=== PATIENT | female | born 1950 | race Caucasian/White ===

== ENCOUNTER 2017-05-02 10:59 | Inpatient (IN) ==
[2017-05-02 12:04] LABS: Basophils # 0.1 10*3/uL (0.0-0.2); Basophils % 0.9 % (0.0-0.8); Eosinophils # 0.3 10*3/uL (0.0-0.87); Eosinophils % 2.7 % (0.00-10.9); Hematocrit 40.9 VOL% (35.7-47.0); Hemoglobin 13.2 GM/DL (12.0-16.0); Immature Granulocytes % 0.2 %; Immature Granulocytes Absolute 0.02 #; Lymphocytes % 27.9 % (21.3-54.2); Mean Corpuscular HGB Conc 32.3 GM/DL (32-36); Mean Corpuscular Hemoglobin 32 PG (27-34); Mean Corpuscular Volume 100.5 FL (87-102); Mean Platelet Volume 9.2 FL (9.6-12.0); Monocytes # 0.9 10*3/uL (0.11-0.8); Monocytes % 8.1 % (1.7-12.7); Neutrophils # 6.4 10*3/uL (1.4-7.4); Neutrophils % 60.2 % (38.7-73.9); Platelet Count 337 T/CUMM (130-400); Red Blood Count 4.07 MC/CUMM (3.8-5.5); Red Cell Distribution Width 13.9 % (9.3-17.3); White Blood Count 10.7 T/CUMM (4-12)
[2017-05-02 12:15] LABS: PT Patient Result 10.7 SECS; Partial Thromboplastin Time 27.1 SECS (0-40)
[2017-05-02 12:38] LABS: Albumin 3.3 G/DL (3.4-5.0); Bilirubin,Total 0.5 MG/DL (0.2-1.0); Calcium 8.9 MG/DL (8.5-10.1); Potassium 4.5 MMOL/L (3.5-5.1); Total Protein 7.2 G/DL (6.4-8.3); Troponin I Only 0.778 NG/ML (0.00-0.045)
[2017-05-02] MEDS ORDERED: diphenhydrAMINE 50 MG/1 ML VIAL IV STA (12:50)
[2017-05-02] MEDS ORDERED: methylPREDNISolone SOD SUC 125 MG/2 ML VIAL IV STA (12:50)
[2017-05-02] MEDS ORDERED: methylPREDNISolone SOD SUC 125 MG/2 ML VIAL ONE (13:02)
[2017-05-02] MEDS ORDERED: diphenhydrAMINE 50 MG/1 ML VIAL ONE (13:02)
[2017-05-02] MEDS ORDERED: ENOXAPARIN 100 MG/ML SYRINGE SUBCUT STA (13:54)
[2017-05-02] MEDS ORDERED: APIXABAN 5 MG TABLET PO ONE (14:16)
[2017-05-02] MEDS ORDERED: ENOXAPARIN 100 MG/ML SYRINGE SUBCUT ONE (14:16)
[2017-05-02] MEDS ORDERED: ACETAMINOPHEN 325 MG TABLET PO PRN (14:52)
[2017-05-02] MEDS ORDERED: DOCUSATE SODIUM 100 MG CAPSULE PO PRN (14:52)
[2017-05-02] MEDS ORDERED: ONDANSETRON 4 MG/2 ML VIAL IV PRN (14:52)
[2017-05-02] MEDS ORDERED: PROMETHAZINE 25 MG/1 ML VIAL IM PRN (14:52)
[2017-05-02] MEDS ORDERED: guaiFENesin/DM ER 600-30 MG TABLET PO PRN (14:52)
[2017-05-02] MEDS ORDERED: FLUTICASONE 50 MCG NASAL SPRAY 16 GM BOTTLE BOTH NARES PRN (14:54)
[2017-05-02] MEDS ORDERED: LORATADINE 10 MG TABLET PO PRN (14:54)
[2017-05-02] MEDS ORDERED: ELETRIPTAN HBR 40 MG PO PRN (14:54)
[2017-05-02] MEDS ORDERED: PHENAZOPYRIDINE 95 MG TABLET PO PRN (14:58)
[2017-05-02] MEDS ORDERED: ASPIRIN 325 MG TABLET PO SCH (15:00)
[2017-05-02] MEDS ORDERED: cefTRIAXone 1,000 MG in SODIUM CHLORIDE 0.9% 100 ML IV SCH (15:00)
[2017-05-02] MEDS: ESCITALOPRAM 10 MG TABLET PO SCH (17:24)
[2017-05-02] MEDS: METHENAMINE HIPPURATE 1 GM TABLET PO SCH ×2 (17:24→22:10)
[2017-05-02] MEDS: GABAPENTIN 300 MG CAPSULE PO SCH ×2 (17:24→22:11)
[2017-05-02] MEDS: PANTOPRAZOLE 40 MG TABLET PO SCH (17:24)
[2017-05-02] MEDS: SODIUM CHLORIDE 0.9% 1,000 ML IV SCH ×2 (17:28→22:12)
[2017-05-02 19:03] LABS: Apearance,Urine CLEAR (Clear); Bilirubin,Urine Negative (Negative); Blood, Urine Small mg/dL (Negative); Glucose,Urine (UA) Negative (Negative); Ketones,Urine 5 mg/dL (Negative); Mucus,Urine Occasional /LPF (Occasional); Nitrite,Urine Positive (Negative); Protein,Urine Negative; RBC,Urine 10 /HPF (0-4); Squamous Epithelial Cell,Urine Occasional /HPF (0-10); Urine Color ORANGE (Yellow); Urine Specific Gravity > 1.060 (1.001-1.035); WBC,Urine 97 /HPF (0-6)
[2017-05-02] MEDS: APIXABAN 5 MG TABLET PO SCH (22:10)
[2017-05-02] MEDS: TOPIRAMATE 100 MG TABLET PO SCH (22:11)
[2017-05-02] MEDS: tiZANidine 4 MG TABLET PO PRN (22:11)
[2017-05-02] MEDS: diphenhydrAMINE CAP 25 MG CAPSULE PO PRN (22:11)
[2017-05-03] MEDS: SODIUM CHLORIDE 0.9% 1,000 ML IV SCH ×2 (01:19→10:08)
[2017-05-03 04:49] LABS: Hematocrit 36.7 VOL% (35.7-47.0); Hemoglobin 11.8 GM/DL (12.0-16.0); Immature Granulocytes % 0.5 %; Immature Granulocytes Absolute 0.03 #; Lymphocytes # 1.4 10*3/uL (1.4-4.0); Lymphocytes % 22.2 % (21.3-54.2); Mean Corpuscular HGB Conc 32.2 GM/DL (32-36); Mean Corpuscular Hemoglobin 32 PG (27-34); Mean Platelet Volume 9.7 FL (9.6-12.0); Monocytes # 0.1 10*3/uL (0.11-0.8); Monocytes % 1.5 % (1.7-12.7); Neutrophils # 4.6 10*3/uL (1.4-7.4); Neutrophils % 75.8 % (38.7-73.9); Platelet Count 316 T/CUMM (130-400); Red Blood Count 3.67 MC/CUMM (3.8-5.5); Red Cell Distribution Width 13.8 % (9.3-17.3); White Blood Count 6.1 T/CUMM (4-12)
[2017-05-03 05:11] LABS: Calcium 8.6 MG/DL (8.5-10.1); Magnesium 2.2 MG/DL (1.8-2.4); Osmolality,Calculated 285.3 MOS/KG (273-304); Potassium 4.8 MMOL/L (3.5-5.1)
[2017-05-03] MEDS: ESCITALOPRAM 10 MG TABLET PO SCH (08:07)
[2017-05-03] MEDS: APIXABAN 5 MG TABLET PO SCH ×2 (08:08→22:07)
[2017-05-03] MEDS: GABAPENTIN 300 MG CAPSULE PO SCH ×3 (08:08→22:07)
[2017-05-03] MEDS: PANTOPRAZOLE 40 MG TABLET PO SCH (08:08)
[2017-05-03] MEDS: METHENAMINE HIPPURATE 1 GM TABLET PO SCH ×2 (08:08→22:07)
[2017-05-03] MEDS: AMOXICILLIN/CLAV 500 MG TABLET PO SCH ×2 (11:50→22:07)
[2017-05-03] MEDS: TOPIRAMATE 100 MG TABLET PO SCH (22:07)
[2017-05-03] MEDS: diphenhydrAMINE CAP 25 MG CAPSULE PO PRN (22:18)
[2017-05-03] MEDS: tiZANidine 4 MG TABLET PO PRN (22:20)
[2017-05-04 04:20] LABS: Basophils % 0.5 % (0.0-0.8); Eosinophils # 0.1 10*3/uL (0.0-0.87); Eosinophils % 1.4 % (0.00-10.9); Hematocrit 34.9 VOL% (35.7-47.0); Immature Granulocytes % 0.6 %; Immature Granulocytes Absolute 0.05 #; Lymphocytes # 3.2 10*3/uL (1.4-4.0); Lymphocytes % 39.8 % (21.3-54.2); Mean Corpuscular HGB Conc 31.5 GM/DL (32-36); Mean Corpuscular Hemoglobin 32 PG (27-34); Mean Corpuscular Volume 101.2 FL (87-102); Mean Platelet Volume 9.4 FL (9.6-12.0); Monocytes # 0.7 10*3/uL (0.11-0.8); Monocytes % 8.2 % (1.7-12.7); Neutrophils % 49.5 % (38.7-73.9); Platelet Count 275 T/CUMM (130-400); Red Blood Count 3.45 MC/CUMM (3.8-5.5); Red Cell Distribution Width 13.8 % (9.3-17.3)
[2017-05-04 04:37] LABS: Calcium 8.3 MG/DL (8.5-10.1); Magnesium 2.3 MG/DL (1.8-2.4); Potassium 3.9 MMOL/L (3.5-5.1)
[2017-05-04] MEDS: APIXABAN 5 MG TABLET PO SCH ×2 (08:49→21:48)
[2017-05-04] MEDS: ESCITALOPRAM 10 MG TABLET PO SCH (08:49)
[2017-05-04] MEDS: PANTOPRAZOLE 40 MG TABLET PO SCH (08:50)
[2017-05-04] MEDS: GABAPENTIN 300 MG CAPSULE PO SCH ×3 (08:50→21:49)
[2017-05-04] MEDS: AMOXICILLIN/CLAV 500 MG TABLET PO SCH (08:50)
[2017-05-04] MEDS: METHENAMINE HIPPURATE 1 GM TABLET PO SCH ×2 (08:50→21:48)
[2017-05-04] MEDS ORDERED: LOPERAMIDE 2 MG CAPSULE PO PRN (14:05)
[2017-05-04] MEDS ORDERED: NITROFURANTOIN MACRO/MONO 100 MG CAPSULE PO SCH (14:30)
[2017-05-04] MEDS: PHENAZOPYRIDINE 95 MG TABLET PO SCH (16:37)
[2017-05-04] MEDS: TOPIRAMATE 100 MG TABLET PO SCH (21:50)
[2017-05-04] MEDS: tiZANidine 4 MG TABLET PO PRN (21:51)
[2017-05-04] MEDS: diphenhydrAMINE CAP 25 MG CAPSULE PO PRN (21:51)
[2017-05-05 05:44] LABS: Basophils # 0.1 10*3/uL (0.0-0.2); Basophils % 1.2 % (0.0-0.8); Eosinophils # 0.5 10*3/uL (0.0-0.87); Eosinophils % 6.3 % (0.00-10.9); Hematocrit 36.2 VOL% (35.7-47.0); Hemoglobin 11.6 GM/DL (12.0-16.0); Immature Granulocytes % 0.1 %; Immature Granulocytes Absolute 0.01 #; Lymphocytes # 3.1 10*3/uL (1.4-4.0); Lymphocytes % 42.1 % (21.3-54.2); Mean Corpuscular Hemoglobin 32 PG (27-34); Mean Corpuscular Volume 100.6 FL (87-102); Mean Platelet Volume 9.1 FL (9.6-12.0); Monocytes # 0.7 10*3/uL (0.11-0.8); Monocytes % 9.8 % (1.7-12.7); Neutrophils % 40.5 % (38.7-73.9); Platelet Count 281 T/CUMM (130-400); Red Cell Distribution Width 13.4 % (9.3-17.3); White Blood Count 7.3 T/CUMM (4-12)
[2017-05-05 06:08] LABS: Calcium 8.7 MG/DL (8.5-10.1); Magnesium 2.5 MG/DL (1.8-2.4); Osmolality,Calculated 285.8 MOS/KG (273-304); Potassium 4.5 MMOL/L (3.5-5.1)
[2017-05-05] MEDS ORDERED: CHOLESTYRAMINE 4 GM PACK PO PRN (08:40)
[2017-05-05] MEDS ORDERED: ONDANSETRON 4 MG TABLET PO PRN (09:00)
[2017-05-05] MEDS ORDERED: metroNIDAZOLE 500 MG TABLET PO SCH (09:00)
[2017-05-05] MEDS: METHENAMINE HIPPURATE 1 GM TABLET PO SCH (09:41)
[2017-05-05] MEDS: APIXABAN 5 MG TABLET PO SCH (09:41)
[2017-05-05] MEDS: ESCITALOPRAM 10 MG TABLET PO SCH (09:41)
[2017-05-05] MEDS: PANTOPRAZOLE 40 MG TABLET PO SCH (09:41)
[2017-05-05] MEDS: GABAPENTIN 300 MG CAPSULE PO SCH ×2 (09:42→16:28)
[2017-05-05] MEDS: PHENAZOPYRIDINE 95 MG TABLET PO SCH ×2 (09:43→12:44)
[2017-05-05] MEDS ORDERED: VANCOMYCIN 50 MG/ML 60 ML/BOTTLE PO SCH (12:00)
[2017-05-05] MEDS: diphenhydrAMINE CAP 25 MG CAPSULE PO PRN (12:44)
[2017-05-05 13:56] VITALS: BP 115/80
== END 2017-05-05 16:45 | disposition home health service (06) | DRG 176 ==
LOC: N.ED 10:59 → N.EDINP 13:54 → SUATTDRO 13:54 → N.EDINP 16:09 → N.CC 16:17 → N.4E 05-03 13:14
PROVIDERS: ATTEND Hospitalist